=== PATIENT | female | born 1980 | race Caucasian/White ===

== ENCOUNTER 2022-01-08 04:37 | Emergency (ER) | payer BC, SELFPAY ==
[2022-01-08] MEDS ORDERED: NA CHLORIDE 0.9% 1,000 ML ONE (05:02)
[2022-01-08 05:32] LABS: Absolute Lymphocytes (CBC) 1.5 K/uL (0.7-4.9); Hematocrit 41.1 % (36.0-45.0); Lymphocytes % 28.4 % (15.3-44.8); MPV 7.7 fL (7.6-11.3); RBC Red Blood Cell Count 4.75 M/uL (3.86-4.86)
[2022-01-08 05:50] LABS: Potassium 3.2 mmol/L (3.5-5.1)
[2022-01-08] MEDS ORDERED: POTASSIUM CL SA 10 MEQ TAB PO ONE (05:59)
[2022-01-08 06:18] LABS: SARS-COV-2 RT PCR NEGATIVE (NEGATIVE)
[2022-01-08 06:26] LABS: Urine Blood 3+ (Negative); Urine Glucose Negative (Negative); Urine Protein 2+ (Negative); Urine Specific Gravity 1.025 (1.005-1.030)
--- NOTE | 2022-01-08 06:26 | EDPHYS ---
Physician Documentation [facility] Name: Herlinda Gutierrez Age: 41 yrs Sex: Female : 1980 Arrival Date: 01/08/2022 Time: 04:38 Bed 19 Private MD: ED Physician Solo Davis HPI: 01/08 04:40 This 41 yrs old Female presents to ER via Unassigned with complaints of Near Syncope. ms3 04:40 The patient has experienced near-syncope, felt faint. Onset: The symptoms/episode ms3 began/occurred acutely, 20 minute(s) ago. Duration: This was a single episode. Context: occurred while the patient was standing. Associated injury: The patient did not suffer any apparent associated injury. Associated signs and symptoms: Pertinent positives: diaphoresis, nausea, Pertinent negatives: abdominal pain, chest pain, headache, vomiting. Current symptoms: Currently, the patient is not experiencing any symptoms. 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 Patient denies pain. Patient endorses lightheadedness and nausea with shortness of breath. Patient states her symptoms improved laying down. Patient denies inciting factors.. Historical: - Allergies: 05:01 Codeine; ke1 - PMHx: 05:02 Hypertensive disorder; ke1 - Immunization history:: Adult Immunizations up to date. - Social history:: Smoking status: Patient denies any tobacco usage or history of. ROS: 04:40 Constitutional: Negative for fever, and chills. Neck: Negative for injury, pain, and ms3 swelling, Cardiovascular: Negative for chest pain, and palpitations. 04:40 Back: Negative for injury and pain, MS/Extremity: Negative for injury and deformity, Skin: Negative for injury, rash, and discoloration. 04:40 Respiratory: Positive for shortness of breath. 04:40 Abdomen/GI: Positive for nausea. 04:40 Neuro: Positive for near syncope. 04:40 All other systems are negative. Exam: 04:40 Constitutional: This is a well developed, well nourished patient who is awake, alert, ms3 and in no acute distress. Head/Face: Normocephalic, atraumatic. Neck: Trachea midline, no cervical lymphadenopathy. Supple, full range of motion without nuchal rigidity, or vertebral point tenderness. No Meningismus. Chest/axilla: Normal chest wall appearance and motion. Nontender with no deformity. Cardiovascular: Regular rate and rhythm with a normal S1 and S2. No gallops, murmurs, or rubs. Normal PMI, no JVD. No pulse deficits. Respiratory: Lungs have equal breath sounds bilaterally, clear to auscultation and percussion. No rales, rhonchi or wheezes noted. No increased work of breathing, no retractions or nasal flaring. Abdomen/GI: Soft, non-tender, with normal bowel sounds. No distension or tympany. No guarding or rebound. No evidence of tenderness throughout. Skin: Warm, dry with normal turgor. Normal color with no rashes, no lesions, and no evidence of cellulitis. MS/ Extremity: Pulses equal, no cyanosis. Neurovascular intact. Full, normal range of motion. Neuro: Awake and alert, GCS 15, oriented to person, place, time, and situation. Cranial nerves II-XII grossly intact. Motor strength 5/5 in all extremities. Sensory grossly intact. Cerebellar exam normal. Psych: Awake, alert, with orientation to person, place and time. Behavior, mood, and affect are within normal limits. 04:49 ECG was reviewed by the Attending Physician. ms3 Vital Signs: 05:03 BP 104 / 64; Pulse 70; Resp 18; Temp 97.5; Weight 117.03 kg; Height 5 ft. 5 in. (165.10 ke1 cm); Pain 0/10; 05:10 BP 117 / 73 Supine; Pulse 80; ke1 05:10 BP 130 / 78 Sitting; Pulse 83; ke1 05:10 BP 129 / 80 Standing; Pulse 83; ke1 06:35 BP 126 / 76; Pulse 80; Resp 18; Pulse Ox 100% on R/A; ke1 05:03 Body Mass Index 42.93 (117.03 kg, 165.10 cm) ke1 MDM: 04:40 Patient medically screened. ms3 04:44 Differential Diagnosis: cardiac arrhythmia, , vasovagal episode. ms3 06:28 Data reviewed: vital signs, nurses notes, lab test result(s), EKG. Data interpreted:. ms3 Counseling: I had a detailed discussion with the patient and/or guardian regarding: the historical points, exam findings, and any diagnostic results supporting the discharge/admit diagnosis, lab results, the need for outpatient follow up, to return to the emergency department if symptoms worsen or persist or if there are any questions or concerns that arise at home. ED course: Discussed labs, EKG, physical exam findings with patient. Given prescription for Vantin for UTI. Patient to follow-up with primary care physician in 2 to 3 days for reevaluation. Patient understands and agrees with plan. All questions were answered. Return precautions discussed include worsening symptoms, or any other concerns. On reevaluation patient symptoms improved, no apparent distress, nontoxic, ambulatory in emergency department, speaking full sentences.. 01/08 04:49 Order name: Basic Metabolic Panel; Complete Time: 05:52 ms3 01/08 04:49 Order name: CBC with Diff; Complete Time: 05:36 ms3 01/08 04:49 Order name: Troponin HS; Complete Time: 05:52 ms3 01/08 05:07 Order name: COVID-19/FLU A+B (Document "Date of Onset" if Symptomatic); Complete Time: cs9 06:20 01/08 06:26 Order name: Urine Dipstick-Ancillary; Complete Time: 06:30 EDMS 01/08 06:27 Order name: Urine --Ancillary (enter results) cs9 01/08 04:49 Order name: EKG; Complete Time: 04:50 ms3 01/08 04:49 Order name: Cardiac monitoring; Complete Time: 05:07 ms3 01/08 04:49 Order name: EKG - Nurse/Tech; Complete Time: 04:57 ms3 01/08 04:49 Order name: IV Saline Lock; Complete Time: 05:07 ms3 01/08 04:49 Order name: Labs collected and sent; Complete Time: 05:07 ms3 01/08 04:49 Order name: O2 Per Protocol; Complete Time: 05:07 ms3 01/08 04:49 Order name: O2 Sat Monitoring; Complete Time: 05:07 ms3 01/08 06:25 Order name: Urine Dipstick-Ancillary (obtain specimen); Complete Time: 06:26 ms3 EC:49 Rate is 75 beats/min. Rhythm is regular. QRS [place] is Normal. Clinical impression: ms3 Normal ECG. Interpreted by me. Reviewed by me. Administered Medications: 05:09 Drug: Sodium Chloride 0.9% 1000 ml Route: IVPB; Site: right antecubital; ke1 06:28 Follow up: IV Status: Completed infusion ke1 05:57 Drug: Potassium Chloride 40 mEq Route: PO; ke1 06:14 Follow up: Response: No adverse reaction ke1 Disposition Summary: 01/08/22 06:26 Discharge Ordered Location: Home ms3 Problem: new ms3 Symptoms: have improved ms3 Condition: Stable ms3 Diagnosis - Hypokalemia ms3 - UTI/ Urinary tract infection, site not specified ms3 - Lightheadedness ms3 Followup: ms3 - With: Sonny Batista MD - When: 1 - 2 days - Reason: Recheck today's complaints Discharge Instructions: - Discharge Summary Sheet ms3 - Near-Syncope ms3 - Urinary Tract Infection, Adult ms3 Forms: - Medication Reconciliation Form ms3 - Thank You Letter ms3 - Antibiotic Education ms3 - Prescription Opioid Use ms3 - Work release form cs9 Prescriptions: - cefpodoxime 100 mg Oral Tablet - take 1 tablet by ORAL route every 12 hours for 7 days take with food; 14 ms3 tablet; Refills: 0, Product Selection Permitted Signatures: Dispatcher [employer] EDMS Solo Davis DO DO ms3 Alfonzo Iyer RN RN ke1 Corrections: (The following items were deleted from the chart) 04:44 04:40 Constitutional: This is a well developed, well nourished patient who is awake, ms3 alert, and in no acute distress. Head/Face: Normocephalic, atraumatic. Neck: Trachea midline, no cervical lymphadenopathy. Supple, full range of motion without nuchal rigidity, or vertebral point tenderness. No Meningismus. Chest/axilla: Normal chest wall appearance and motion. Nontender with no deformity. Cardiovascular: Regular rate and rhythm with a normal S1 and S2. No gallops, murmurs, or rubs. Normal PMI, no JVD. No pulse deficits. Respiratory: Lungs have equal breath sounds bilaterally, clear to auscultation and percussion. No rales, rhonchi or wheezes noted. No increased work of breathing, no retractions or nasal flaring. Abdomen/GI: Soft, non-tender, with normal bowel sounds. No distension or tympany. No guarding or rebound. No evidence of tenderness throughout. Skin: Warm, dry with normal turgor. Normal color with no rashes, no lesions, and no evidence of cellulitis. MS/ Extremity: Pulses equal, no cyanosis. Neurovascular intact. Full, normal range of motion. Neuro: Awake and alert, GCS 15, oriented to person, place, time, and situation. Cranial nerves II-XII grossly intact. Motor strength 5/5 in all extremities. Sensory grossly intact. Cerebellar exam normal. Normal gait. Psych: Awake, alert, with orientation to person, place and time. Behavior, mood, and affect are within normal limits. ms3 05:02 05:02 PMHx: Hypercholesterolemia; ke1 ke1
--- NOTE | 2022-01-08 06:26 | ER ---
Nurse's Notes [facility] Name: Herlinda Gutierrez Age: 41 yrs Sex: Female : 1980 Arrival Date: 01/08/2022 Time: 04:38 Bed 19 Private MD: Diagnosis: Hypokalemia;UTI/ Urinary tract infection, site not specified;Lightheadedness Presentation: 01/08 04:57 Chief complaint: Patient states: I felt lightheaded while sitting on the toilet, nausea ke1 and saw that i was pale while looking at myself in the miror. Coronavirus screen: Vaccine status: Patient reports receiving the 2nd dose of the covid vaccine. Ebola Screen: No symptoms or risks identified at this time. Initial Sepsis Screen: Does the patient meet any 2 criteria? No. Patient's initial sepsis screen is negative. Does the patient have a suspected source of infection? No. Patient's initial sepsis screen is negative. Risk Assessment: Do you want to hurt yourself or someone else? Patient reports no desire to harm self or others. Onset of symptoms was January 08, 2022 at 04:45. 04:57 Method Of Arrival: Wheelchair ke1 04:57 Acuity: QUANG 3 ke1 Triage Assessment: 05:04 General: Appears uncomfortable, Behavior is calm, cooperative. Pain: Denies pain. ke1 Neuro: Level of Consciousness is awake, alert, Oriented to person, place, time, situation. Cardiovascular: Heart tones S1 S2. Respiratory: Airway is patent Respiratory effort is even, unlabored, Respiratory pattern is regular, symmetrical. GI: Abdomen is obese. : No deficits noted. Derm: No deficits noted. Musculoskeletal: No deficits noted. Historical: - Allergies: 05:01 Codeine; ke1 - PMHx: 05:02 Hypertensive disorder; ke1 - Immunization history:: Adult Immunizations up to date. - Social history:: Smoking status: Patient denies any tobacco usage or history of. Screenin:05 Abuse screen: Denies threats or abuse. Nutritional screening: No deficits noted. ke1 Tuberculosis screening: No symptoms or risk factors identified. Fall Risk No fall in past 12 months (0 pts). Secondary diagnosis (15 points). Assessment: 05:07 Reassessment: see triage. ke1 Vital Signs: 05:03 BP 104 / 64; Pulse 70; Resp 18; Temp 97.5; Weight 117.03 kg; Height 5 ft. 5 in. (165.10 ke1 cm); Pain 0/10; 05:10 BP 117 / 73 Supine; Pulse 80; ke1 05:10 BP 130 / 78 Sitting; Pulse 83; ke1 05:10 BP 129 / 80 Standing; Pulse 83; ke1 06:35 BP 126 / 76; Pulse 80; Resp 18; Pulse Ox 100% on R/A; ke1 05:03 Body Mass Index 42.93 (117.03 kg, 165.10 cm) ke1 ED Course: 04:38 Patient arrived in ED. kz 04:40 Alfonzo Iyer RN is Primary Nurse. ke1 04:40 Solo Davis DO is Attending Physician. ms3 05:01 Triage completed. ke1 05:06 Arm band placed on right wrist. ke1 05:06 Bed in low position. Call light in reach. ke1 05:09 Inserted saline lock: 20 gauge in right antecubital area, using aseptic technique. ke1 ,using aseptic technique. BY MAHESH Coker RN. 06:25 Sonny Batista MD is Referral Physician. ms3 06:27 No provider procedures requiring assistance completed. ke1 06:28 IV discontinued. ke1 Administered Medications: 05:09 Drug: Sodium Chloride 0.9% 1000 ml Route: IVPB; Site: right antecubital; ke1 06:28 Follow up: IV Status: Completed infusion ke1 05:57 Drug: Potassium Chloride 40 mEq Route: PO; ke1 06:14 Follow up: Response: No adverse reaction ke1 Outcome: 06:26 Discharge ordered by . ms3 06:27 Discharged to home ambulatory. ke1 06:27 Condition: good 06:27 Discharge instructions given to patient. 06:36 Patient left the ED. ke1 Signatures: Solo Davis DO DO ms3 Alfonzo Iyer RN RN ke1 Quin Harvey kz Corrections: (The following items were deleted from the chart) 05:01 04:56 Chief complaint: ke1 ke1 05:02 05:02 PMHx: Hypercholesterolemia; ke1 ke1 05:06 05:03 BP 110 / 56; Pulse 70bpm; Resp 18bpm; Temp 97.5F; 117.03 kg; Height 5 ft. 5 in.; ke1 BMI: 42.9; Pain 0/10; ke1
[2022-01-08 11:31] VITALS: TEMP 97.5
[2022-01-08 11:35] VITALS: BP 126/76; O2SAT 100
[2022-01-08 14:50] LABS: Urine Specific Gravity/Preg 1.025 (1.005-1.030)
--- NOTE | 2022-01-10 09:43 | EKG ---
Test Date: 2022-01-08 Test Time: 04:49:41 Batting Machine Operator Insulation: MEASUREMENT RESULTS: Intervals: Rate: 75 UT: 162 QRSD: 88 QT: 418 QTc: 466 [place]: P: 56 UT: 162 QRS: 80 T: 70 INTERPRETIVE STATEMENTS: Normal sinus rhythm Normal ECG No previous ECG available for comparison Electronically Signed On 01-10-22 09:36:13 CDT by Jay Bunch
== END 2022-01-08 06:36 | disposition home or self-care (01) ==
LOC: ER 04:37
DX: N39.0 Urinary tract infection, site not specified (principal); E87.6 Hypokalemia; R42 Dizziness and giddiness; Z88.6 Allergy status to analgesic agent; I10 Essential (primary) hypertension; Z20.822 Contact with and (suspected) exposure to COVID-19
CPT/HCPCS: 96365; 93005; 85025; 80048; 36415; 81025; 81003; 84484; 0240U; 99283; J7030

== ENCOUNTER 2022-05-01 16:08 | Emergency (ER) | payer BC ==
[2022-05-01] MEDS ORDERED: NA CHLORIDE 0.9% 1,000 ML ONE (16:47)
[2022-05-01 17:11] LABS: Absolute Lymphocytes (CBC) 2.2 K/uL (0.7-4.9); Lymphocytes % 30.3 % (15.3-44.8); MCV 85.6 fL (80-100); MPV 7.7 fL (7.6-11.3); RBC Red Blood Cell Count 4.78 M/uL (3.86-4.86)
[2022-05-01 17:39] LABS: Albumin 3.7 g/dL (3.4-5.0); Bilirubin Total 0.2 mg/dL (0.2-1.0); Magnesium 2.1 mg/dL (1.8-2.4); Potassium 3.5 mmol/L (3.5-5.1); Protein, Total 7.3 g/dL (6.4-8.2); Troponin High Sensitivity 3.5 pg/mL (<58.9)
--- NOTE | 2022-05-01 18:26 | ER ---
Nurse's Notes [facility] Name: Herlinda Gutierrez Age: 41 yrs Sex: Female : 1980 Arrival Date: 05/01/2022 Time: 16:11 Bed 6 Private MD: Diagnosis: Orthostatic hypotension;Dizziness and giddiness Presentation: 05/01 16:21 Chief complaint: Patient states: pt presented to ED with sudden dizziness and feeling lee like the room is spinning. Coronavirus screen: Vaccine status: Patient reports receiving the 2nd dose of the covid vaccine. Ebola Screen: Patient denies travel to an Ebola-affected area in the 21 days before illness onset. Initial Sepsis Screen: Does the patient meet any 2 criteria? No. Patient's initial sepsis screen is negative. Does the patient have a suspected source of infection? No. Patient's initial sepsis screen is negative. Risk Assessment: Do you want to hurt yourself or someone else? Patient reports no desire to harm self or others. Risk Assessment: Do you want to hurt yourself or someone else?. Onset of symptoms was May 01, 2022. 16:21 Method Of Arrival: Ambulatory lee 16:21 Acuity: QUANG 3 lee Triage Assessment: 16:22 General: Appears in no apparent distress. Behavior is calm, cooperative. Pain: Denies lee pain. Neuro: Level of Consciousness is awake, alert, obeys commands, Oriented to person, place, time, situation, Reports dizziness. Cardiovascular: Reports diaphoresis, lightheadedness. Historical: - Allergies: 16:22 Codeine; lee - PMHx: 16:22 Hypertensive disorder; lee - Immunization history:: Adult Immunizations up to date. - Social history:: Smoking status: Patient denies any tobacco usage or history of. Screenin:23 Abuse screen: Denies threats or abuse. Denies injuries from another. Nutritional lee screening: No deficits noted. Tuberculosis screening: No symptoms or risk factors identified. Fall Risk None identified. Vital Signs: 16:21 BP 117 / 72; Pulse 78; Resp 19; Pulse Ox 100% ; Weight 115.67 kg; Height 5 ft. 5 in. lee (165.10 cm); 17:07 BP 147 / 90 Supine; Pulse 76; lee 17:07 BP 127 / 94 Sitting; Pulse 78; lee 18:20 BP 141 / 92 Supine; Pulse 78; lee 18:20 BP 145 / 100 Sitting; Pulse 77; lee 18:20 BP 147 / 87 Standing; Pulse 79; lee 16:21 Body Mass Index 42.43 (115.67 kg, 165.10 cm) lee ED Course: 16:11 Patient arrived in ED. ss 16:14 Faviola Perea MD is Attending Physician. sd2 16:15 Cherry Epperson, EMILY is Primary Nurse. lee 16:22 Triage completed. lee 16:22 Arm band placed on. lee 16:23 Patient has correct armband on for positive identification. Bed in low position. lee 16:23 No provider procedures requiring assistance completed. lee 18:53 IV discontinued, intact, Pressure dressing applied. lee Administered Medications: 17:08 Drug: NS 0.9% 1000 ml Route: IV; Rate: 1000 ml; Site: left antecubital; lee 18:38 Drug: Meclizine 25 mg Route: PO; lee 18:38 Follow up: Response: No adverse reaction lee Medication: 16:23 VIS not applicable for this client. lee Outcome: 18:26 Discharge ordered by . sd2 18:52 Discharged to home ambulatory. lee 18:52 Condition: good 18:52 Discharge instructions given to patient, Prescriptions given X 1. 18:53 Patient left the ED. lee Signatures: Violet Mejia RN RN Cherry Epperson RN RN Faviola Perea MD MD sd2
--- NOTE | 2022-05-01 18:27 | EDPHYS ---
Physician Documentation [facility] Name: Herlinda Gutierrez Age: 41 yrs Sex: Female : 1980 Arrival Date: 05/01/2022 Time: 16:11 Bed 6 Private MD: ED Physician Faviola Perea HPI: 05/01 17:51 This 41 yrs old Female presents to ER via Ambulatory with complaints of Dizziness. sd2 17:51 41 yo F presents with CC of dizziness. 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 Reports feeling as if she was going to pass out. Denies any associated CP, SOB, fevers or recent illness. Reports persistent sweating since then. Reports did eat soup for lunch today but did not eat breakfast or anything else "substantial." Reports this has happened once before previously and the only thing found was a low potassium level at that time. Denies any chance of .. Historical: - Allergies: 16:22 Codeine; lee - PMHx: 16:22 Hypertensive disorder; lee - Immunization history:: Adult Immunizations up to date. - Social history:: Smoking status: Patient denies any tobacco usage or history of. ROS: 17:51 Constitutional: Negative for fever, chills, and weight loss, Eyes: Negative for injury, sd2 pain, redness, and discharge, Cardiovascular: Negative for chest pain, palpitations, and edema. Positive for near syncope. Respiratory: Negative for shortness of breath, cough, wheezing. Abdomen/GI: Negative for abdominal pain, nausea, vomiting, diarrhea. MS/Extremity: Negative for injury and deformity, Skin: Negative for injury, rash, and discoloration, Neuro: Negative for headache, numbness and tingling. Exam: 17:51 Constitutional: This is a well developed, well nourished patient who is awake, alert, sd2 and in no acute distress. Head/Face: Normocephalic, atraumatic. Eyes: EOMI, normal conjunctiva bilaterally Chest/axilla: Normal chest wall appearance and motion. Nontender with no deformity. Cardiovascular: Regular rate and rhythm with a normal S1 and S2. No gallops, murmurs, or rubs. 2+ distal pulses. Respiratory: Lungs have equal breath sounds bilaterally, clear to auscultation and percussion. No rales, rhonchi or wheezes noted. No increased work of breathing, no retractions or nasal flaring. Abdomen/GI: Soft, non-tender, with normal bowel sounds. No guarding or rebound. No evidence of tenderness throughout. Skin: Warm, dry with normal turgor. Normal color with no rashes, no lesions, and no evidence of cellulitis. MS/ Extremity: Pulses equal, no cyanosis. Neurovascular intact. Full, normal range of motion. Ambulatory without difficulty. Psych: Awake, alert, with orientation to person, place and time. Behavior, mood, and affect are within normal limits. 17:51 ECG was reviewed by the Attending Physician. NSR, rate 76, no STEMI criteria Vital Signs: 16:21 BP 117 / 72; Pulse 78; Resp 19; Pulse Ox 100% ; Weight 115.67 kg; Height 5 ft. 5 in. lee (165.10 cm); 17:07 BP 147 / 90 Supine; Pulse 76; lee 17:07 BP 127 / 94 Sitting; Pulse 78; lee 18:20 BP 141 / 92 Supine; Pulse 78; lee 18:20 BP 145 / 100 Sitting; Pulse 77; lee 18:20 BP 147 / 87 Standing; Pulse 79; lee 16:21 Body Mass Index 42.43 (115.67 kg, 165.10 cm) lee MDM: 16:15 Patient medically screened. sd2 17:51 Differential diagnosis: Vasovagal, cardiogenic, arrhythmia, anemia, electrolyte sd2 abnormality, ACS, orthostasis, PE, dehydration among others. Data reviewed: vital signs, nurses notes. 18:23 Data reviewed: lab test result(s), EKG. Counseling: I had a detailed discussion with sd2 the patient and/or guardian regarding: the historical points, exam findings, and any diagnostic results supporting the discharge/admit diagnosis, lab results, the need for outpatient follow up, to return to the emergency department if symptoms worsen or persist or if there are any questions or concerns that arise at home. Medical screen evaluation completed. [facility] emergency medical condition absent. ED course: Labs reviewed and grossly WNCL. Trop neg. EKG with no ischemic changes. Initial orthostatics positive and improved after IVFs with no further dizziness upon standing. However, patient now reports ongoing posterior neck pain and headaches that she thought was muscular over the past week. No fever, neck stiffness, meningeal signs, photophobia or phonophobia. Suspect dehydration which is leading to orthostasis and headaches. Pt also dizzy only when turning her head to the left and there may be an element of vertigo. No focal neuro deficits. Pt ambulatory without difficulty. Will dc with Meclizine and advised patient to increase hydration and follow up outpatient with PCP. Pt verbalizes understanding of discharge plan and strict return precautions.. 05/01 16:16 Order name: CBC with Diff; Complete Time: 17:50 sd2 05/01 16:16 Order name: CMP; Complete Time: 17:50 sd2 05/01 16:16 Order name: Magnesium; Complete Time: 17:50 sd2 05/01 16:16 Order name: Troponin High Sensitivity; Complete Time: 17:50 sd2 05/01 16:16 Order name: EKG - Nurse/Tech; Complete Time: 17:08 sd2 05/01 16:16 Order name: Orthostatics; Complete Time: 17:07 sd2 Administered Medications: 17:08 Drug: NS 0.9% 1000 ml Route: IV; Rate: 1000 ml; Site: left antecubital; lee 18:38 Drug: Meclizine 25 mg Route: PO; lee 18:38 Follow up: Response: No adverse reaction lee Disposition Summary: 05/01/22 18:26 Discharge Ordered Location: Home sd2 Problem: new sd2 Symptoms: have improved sd2 Condition: Stable sd2 Diagnosis - Orthostatic hypotension sd2 - Dizziness and giddiness sd2 Followup: sd2 - With: Private Physician - When: 2 - 3 days - Reason: Recheck today's complaints, Continuance of care, Re-evaluation by your physician Followup: sd2 - With: Emergency Department - When: As needed - Reason: Discharge Instructions: - Discharge Summary Sheet sd2 - Dizziness sd2 - Orthostatic Hypotension sd2 - How to Perform the Mara Maneuver sd2 Forms: - Medication Reconciliation Form sd2 - Thank You Letter sd2 - Antibiotic Education sd2 - Prescription Opioid Use sd2 Prescriptions: - Meclizine 25 mg Oral Tablet - take 1 tablet by ORAL route every 8 hours As needed; 15 tablet; Refills: 0, sd2 Product Selection Permitted Signatures: Dispatcher Cherry Taylor, EMILY RN Faviola Schmidt MD MD sd2
[2022-05-01] MEDS ORDERED: MECLIZINE HCL 12.5 MG TAB ONE (18:36)
[2022-05-01 20:10] VITALS: O2SAT 100
[2022-05-01 20:15] VITALS: BP 147/87
--- NOTE | 2022-05-02 12:21 | EKG ---
Test Date: 2022-05-01 Test Time: 17:07:02 Piston Maker: SALINAS MEASUREMENT RESULTS: Intervals: Rate: 76 HI: 164 QRSD: 84 QT: 416 QTc: 468 [place]: P: 37 HI: 164 QRS: 61 T: 32 INTERPRETIVE STATEMENTS: Normal sinus rhythm Normal ECG Compared to ECG 01/08/2022 04:49:41 No significant changes Electronically Signed On 05-02-22 12:20:06 CDT by Ryan Cox
== END 2022-05-01 18:53 | disposition home or self-care (01) ==
LOC: ER 16:08
DX: I95.1 Orthostatic hypotension (principal); I10 Essential (primary) hypertension; Z88.5 Allergy status to narcotic agent
CPT/HCPCS: 93005; 85025; 36415; 83735; 84484; 80053; 99283; J8597; J7030